=== PATIENT | male | born 1995 | race Two or more races ===

== ENCOUNTER 2018-12-10 20:38 | Emergency (ER) | payer SELFPAY ==
[~2018-12-10] VITALS: Ht 175.3 cm; Wt 68.0 kg
[2018-12-10 20:44] VITALS: BP 136/94
[2018-12-10] MEDS ORDERED: NKM (20:50)
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
[2018-12-10] MEDS ORDERED: IBUPROFEN600 MG ORAL (21:41)
[2018-12-10 21:50] VITALS: BP 136/94
--- NOTE | 2018-12-11 11:27 | Diagnostic Imaging Report ---
Indication: left shoulder pain Findings: 3 views of the left shoulder were obtained. Alignment of the left shoulder is normal. No acute fracture is identified. Soft tissues are unremarkable. Impression: No acute injury
== END 2018-12-10 21:50 | disposition home or self-care (01) ==
LOC: EMR 21:30
DX: S40.012A Contusion of left shoulder, initial encounter (principal); V43.52XA Car driver injured in collision with other type car in traffic accident, initial encounter; Y92.410 Unspecified street and highway as the place of occurrence of the external cause; R51 Headache; M54.9 Dorsalgia, unspecified
CPT/HCPCS: 99283